=== PATIENT | female | born 1975 | race Caucasian/White ===

== ENCOUNTER → 2017-04-16 | Outpatient (CLI) | payer BC ==
--- NOTE | 2017-04-16 10:30 | US ---
EXAMINATION TYPE: US abdomen complete DATE OF EXAM: 04/16/2017 COMPARISON: NONE CLINICAL HISTORY: R10.31 rt lower quad pain, R10.32 lt lower quad pa. EXAM MEASUREMENTS: Liver Length: 14.2 cm Gallbladder Wall: 0.26 cm CBD: 0.43 cm Spleen: 10.9 cm Right Kidney: 6.6 x 3.9 x 9.7 cm Left Kidney: 9.7 x 5.2 x 4.6 cm Pancreas: wnl Liver: wnl Gallbladder: wnl Evidence for sonographic Mcdaniel's sign: No CBD: wnl Spleen: wnl Right Kidney: wnl Left Kidney: wnl Upper IVC: wnl Abd Aorta: wnl The pancreas is unremarkable. The liver is normal in size without biliary dilatation. The gallbladder is normal without evidence of cholelithiasis. Gallbladder wall measures 2.6 mm. The d istal common hepatic duct measures 4.3 mm. The spleen is normal in size. Both kidneys are normal. Visualized portions of aorta and IVC are normal. IMPRESSION: NORMAL ABDOMINAL ULTRASOUND.
== END | disposition home or self-care (01) ==
LOC: RADUSWWP 08:58
PROVIDERS: ATTEND Family Medicine
DX: R10.31 Right lower quadrant pain (principal); R10.32 Left lower quadrant pain
CPT/HCPCS: 76700

== ENCOUNTER → 2017-04-30 | Outpatient (CLI) | payer BC ==
--- NOTE | 2017-04-30 15:25 | US ---
EXAMINATION TYPE: US pelvic complete DATE OF EXAM: 04/30/2017 COMPARISON: CT CLINICAL HISTORY: R10.32 LLQ, R10.31 RLQ. Pelvic discomfort, regular menses, tubal ligation TECHNIQUE: Transabdominal (TA) Date of LMP: 04/07/2017, EXAM MEASUREMENTS: Uterus: 8.6 x 5.8 x 4.5 cm Endometrial Stripe: 0.9 cm Right Ovary: 2.8 x 1.9 x 1.6 cm Left Ovary: 3.2 x 2.3 x 1.6 cm 1. Uterus: Anteverted wnl 2. Endometrium: wnl 3. Right Ovary: wnl, follicles seen 4. Left Ovary: Cystic lesion with internal echoes = 1.9 x 2.3 x 1.3 cm Color doppler imaging shows good arterial and venous flow within the ovaries. 5. Bilateral Adnexa: wnl 6. Posterior cul-de-sac: free fluid seen Uterus is anteverted in shape. Endometrium does not appear suspiciously thickened. Tiny amount of lisa e fluid is seen in pelvic cul-de-sac on images 40 through 42. Right ovary is not well identified area of marked by technologist's is fairly ill-defined. Left ovary is normal in size. There is 2.3 cm peripheral oval anechoic lesion likely reflecting dominant follic le or simple small ovarian cyst. No concerning adnexal masses are present. IMPRESSION: No significant finding is seen to account for patient's symptoms.
--- NOTE | 2017-05-01 07:14 | MM ---
Reason for exam: screening (asymptomatic). Baseline mammogram. History: Patient has history of other cancer at age 19. Physical Findings: Nurse did not find any significant physical abnormalities on exam. MG Screening Mammo w CAD Bilateral CC and MLO view(s) were taken. The breast tissue is heterogeneously dense. This may lower the sensitivity of mammography. These results were verbally communicated with the patient and result sheet given to the patient on 04/30/17. ASSESSMENT: Negative, BI-RAD 1 RECOMMENDATION: Routine screening mammogram of both breasts in 1 year.
== END | disposition home or self-care (01) ==
LOC: RADUSWWP 14:22
PROVIDERS: ATTEND Family Medicine
DX: Z12.31 Encounter for screening mammogram for malignant neoplasm of breast (principal); R10.32 Left lower quadrant pain; R10.31 Right lower quadrant pain
CPT/HCPCS: 76856; G0202